=== PATIENT | female | born 1950 | race African-American/Black ===

== ENCOUNTER 2017-01-15 11:04 | Emergency (ER) | payer MEDICARE ==
[~2017-01-15] VITALS: Ht 162.6 cm; Wt 71.0 kg
[~2017-01-15 11:04] MED LIST: HYDR12.56 PO; PRIN10TA PO
[2017-01-15 11:08] VITALS: BP 167/90; PULSE 70; RESP 16; TEMP 98.4; O2SAT 99
[2017-01-15 11:26] VITALS: BP 152/86; PULSE 76
[2017-01-15] MEDS ORDERED: LISI10TA PO (11:30)
--- NOTE | 2017-01-15 11:30 | PD ---
HPI Chief Complaint: Hypertension Time Seen by Provider: 11:21 Travel History International Travel<30 days: No Contact w/Intl Traveler<30days: No Traveled to known affect area: No History of Present Illness HPI 66-year-old woman with high blood pressure. Out of medications yesterday. Appointment with her primary in 3 weeks. No complaints. History Past Medical History Narrative Medical Hypertension Menopausal: Yes : 5 Para: 5 Social History Alcohol Use: No Tobacco Use: No Allergies-Medications (Allergen,Severity, Reaction): Coded Allergies: No Known Allergies (Verified , 11/07/09) Reported Meds & Prescriptions Reported Meds & Active Scripts Active Reported Hctz (Hydrochlorothiazide) 12.5 Mg Cap 12.5 Mg PO DAILY Prinivil (Lisinopril) 10 Mg Tab 10 Mg PO DAILY Review of Systems Cardiovascular: No: Chest Pain or Discomfort Respiratory: No: Shortness of Breath Gastrointestinal: No: Nausea, Vomiting Physical Exam Narrative GENERAL: Well-appearing 66-year-old woman, no acute distress. SKIN: Warm and dry. CARDIOVASCULAR: Warm and well perfused. RESPIRATORY: Normal rate and effort. MUSCULOSKELETAL: No deformities. NEUROLOGICAL: Awake and alert. No gross deficits. Data Data Last Documented VS Vital Signs Date Time Temp Pulse Resp B/P (MAP) Pulse Ox O2 Delivery O2 Flow Rate FiO2 01/15/17 11:26 76 152/86 (108) 01/15/17 11:08 98.4 16 99 Room Air MDM Medical Decision Making Medical Screen Exam Complete: Yes Emergency Medical Condition: Yes Differential Diagnosis Hypertension Narrative Course 66 year-old woman hypertension out of meds. No complaints. Diagnosis Primary Impression: Hypertension Additional Instructions: Take medications as prescribed. Med/Other Pt SpecificInfo: No Change to Meds Scripts Lisinopril-Hctz (Lisinopril-Hctz) 10-12.5 Mg Tab 1 TAB PO DAILY for Blood Pressure Management, #30 TAB 0 Refills Prov: Alfonzo Ndiaye MD 01/15/17 Disposition: 01 DISCHARGE HOME Condition: Stable Alfonzo Ndiaye MD Jan 15, 2017 11:30
== END 2017-01-15 11:55 | disposition home or self-care (01) ==
LOC: NEPD 11:04
DX: I10 Essential (primary) hypertension (principal)
CPT/HCPCS: 99281

== ENCOUNTER 2017-02-13 14:29 | Emergency (ER) | payer MEDICARE ==
[~2017-02-13] VITALS: Ht 162.6 cm; Wt 73.0 kg
[~2017-02-13 14:29] MED LIST changes: +LISI10TA PO
[2017-02-13 14:38] VITALS: BP 182/86; PULSE 94; RESP 16; TEMP 98.3; O2SAT 99
[2017-02-13] MEDS ORDERED: LISI10TA PO (15:18)
[2017-02-13] MEDS ORDERED: BENZ100 PO (15:18)
--- NOTE | 2017-02-13 15:20 | PD ---
HPI Chief Complaint: Cold / Flu Symptoms Time Seen by Provider: 15:01 Travel History International Travel<30 days: No Contact w/Intl Traveler<30days: No Traveled to known affect area: No History of Present Illness HPI 66-year-old female here with cough, nasal congestion, sore throat 3 days. 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 She denies fever or chills, chest pain, shortness breath. Symptom severity is mild. No alleviating factors. Patient has not attempted any OTC medications for symptom relief. Also requesting a refill of her lisinopril hydrochlorothiazide for her blood pressure. She reports she ran out this week and has been unable to establish with a new primary doctor [facility] Past Medical History Cardiovascular Problems: Yes (HTN) Diabetes: No Diminished Hearing: No Hypertension: Yes Tetanus Vaccination: > 5 Years Influenza Vaccination: No ?: Not Menopausal: Yes : 5 Para: 5 Tubal Ligation: Yes Past Surgical History Gynecologic Surgery: Yes (TABAL LIGATION 87) Social History Alcohol Use: No Tobacco Use: No Substance Use: No Allergies-Medications (Allergen,Severity, Reaction): Coded Allergies: diphenhydramine (Verified Allergy, Severe, HIVES, 02/13/17) Reported Meds & Prescriptions Reported Meds & Active Scripts Active Lisinopril-Hctz 10-12.5 Mg Tab 1 Tab PO DAILY Review of Systems Except as stated in HPI: all other systems reviewed are Neg Physical Exam Narrative GENERAL: Well-nourished, well-developed patient. SKIN: Focused skin assessment warm/dry. HEAD: Normocephalic. EYES: No scleral icterus. No injection or drainage. NECK: Supple, trachea midline. No JVD or lymphadenopathy. Throat: Pharyngeal erythema without exudate or tonsillar hypertrophy CARDIOVASCULAR: Regular rate and rhythm without murmurs, gallops, or rubs. RESPIRATORY: Breath sounds equal bilaterally. No accessory muscle use. GASTROINTESTINAL: Abdomen soft, non-tender, nondistended. MUSCULOSKELETAL: No cyanosis, or edema. BACK: Nontender without obvious deformity. No CVA tenderness. Data Data Last Documented VS Vital Signs Date Time Temp Pulse Resp B/P (MAP) Pulse Ox O2 Delivery O2 Flow Rate FiO2 02/13/17 14:52 16 02/13/17 14:38 98.3 94 182/86 (118) 99 [facility] Medical Decision Making Medical Screen Exam Complete: Yes Emergency Medical Condition: Yes Differential Diagnosis URI, Bronchitis, viral illness Narrative Course 66-year-old female here with cough, nasal congestion, sore throat 3 days. Patient works as a OCCUPATIONAL HEALTH TECHNICIAN. Her symptoms are mild. She denies fever, chills, chest pain, shortness of breath. This appears to be viral. She will be treated symptomatically. Patient is also requesting a refill of her blood pressure medication as she is unable to follow-up with a new primary doctor at this time. Diagnosis Primary Impression: URI (upper respiratory infection) Qualified Codes: J06.9 - Acute upper respiratory infection, unspecified; B97.89 - Other viral agents as the cause of diseases classified elsewhere Additional Impression: Medication refill Referrals: [facility] Departure Forms: Tests/Procedures, Work Release Enter return to work date: Feb 16, 2017 Additional Instructions: Take the medication as prescribed. Make a follow-up appointment with the [facility] to establish with a new primary doctor. Return to the emergency department if he developed new or worsening symptoms Scripts Benzonatate (Tessalon Perles) 100 Mg Cap 200 MG PO TID Y for COUGH for 5 Days, CAP 0 Refills Prov: Ольга Parham 02/13/17 Lisinopril-Hctz (Lisinopril-Hctz) 10-12.5 Mg Tab 1 TAB PO DAILY for Blood Pressure Management, #30 TAB 0 Refills Prov: Ольга Parham 02/13/17 Disposition: 01 DISCHARGE HOME Condition: Stable Ольга Parham Feb 13, 2017 15:20
== END 2017-02-13 15:34 | disposition home or self-care (01) ==
LOC: PHEFT 14:29
DX: J06.9 Acute upper respiratory infection, unspecified (principal); I10 Essential (primary) hypertension; Z76.0 Encounter for issue of repeat prescription
CPT/HCPCS: 99283

== ENCOUNTER 2017-03-15 17:12 | Emergency (ER) | payer MEDICARE ==
[~2017-03-15 17:12] MED LIST changes: +BENZ100 PO; -HYDR12.56 PO; -PRIN10TA PO
[2017-03-15 17:17] VITALS: BP 185/84; PULSE 73; RESP 20; TEMP 98.5; O2SAT 100
[2017-03-15] MEDS ORDERED: HYDR25TA5 PO (17:42)
[2017-03-15] MEDS ORDERED: AZIT250T3 PO (17:42)
--- NOTE | 2017-03-15 17:42 | PD ---
HPI Chief Complaint: Cold / Flu Symptoms Time Seen by Provider: 17:32 Travel History International Travel<30 days: No Contact w/Intl Traveler<30days: No Traveled to known affect area: No History of Present Illness HPI Patient 66-year-old female second presentation for cough and past month. Patient states cough has not gotten any better. Denies any sputum production. States feels a tickle in her throat. She does have a history of high blood pressure has not followed up in sometime a primary care physician, her last visit to the emergency department her lisinopril was refilled, patient states she just started this medication about 6 months ago. She denies any chest pain shortness of breath abdominal pain nausea vomiting fevers rash. States gradually gotten worse, associated signs symptoms as above, context as above, symptoms are mild. PFSH Past Medical History Cardiovascular Problems: Yes (HTN) Diabetes: No Diminished Hearing: No Hypertension: Yes Influenza Vaccination: No Menopausal: Yes : 5 Para: 5 Tubal Ligation: Yes Past Surgical History Gynecologic Surgery: Yes (TABAL LIGATION 88) Social History Alcohol Use: No Tobacco Use: No Substance Use: No Allergies-Medications (Allergen,Severity, Reaction): Coded Allergies: diphenhydramine (Verified Allergy, Severe, HIVES, 02/13/17) Reported Meds & Prescriptions Reported Meds & Active Scripts Active Azithromycin 250 Mg Tab 250 Mg PO DIRECTED Take 2 tabs (500 mg) on day 1 then 1 tab daily x 4 days. Hydrochlorothiazide 25 Mg Tab 25 Mg PO DAILY Lisinopril-Hctz 10-12.5 Mg Tab 1 Tab PO DAILY Review of Systems Except as stated in HPI: all other systems reviewed are Neg Physical Exam Narrative GENERAL: Well-developed well-nourished no obvious distress SKIN: Focused skin assessment warm/dry. HEAD: Atraumatic. Normocephalic. EYES: Pupils equal and round. No scleral icterus. No injection or drainage. ENT: No nasal bleeding or discharge. Mucous membranes pink and moist. TMs clear bilaterally oropharynx clear NECK: Trachea midline. No JVD. CARDIOVASCULAR: Regular rate and rhythm. No murmur appreciated. RESPIRATORY: No accessory muscle use. Clear to auscultation. Breath sounds equal bilaterally. GASTROINTESTINAL: Abdomen soft, non-tender, nondistended. Hepatic and splenic margins not palpable. MUSCULOSKELETAL: No obvious deformities. No clubbing. No cyanosis. No edema. NEUROLOGICAL: Awake and alert. No obvious cranial nerve deficits. Motor grossly within normal limits. Normal speech. PSYCHIATRIC: Appropriate mood and affect; insight and judgment normal. Data Data Last Documented VS Orders Orders Chest, Pa & Lat (03/15/17 ) Ed Discharge Order (03/15/17 18:17) MDM Medical Decision Making Medical Screen Exam Complete: Yes Emergency Medical Condition: Yes Differential Diagnosis URI, bronchitis, cough secondary to MERVIN inhibitor Narrative Course Patient roomed in emergency department, including differential is cough secondary to MERVIN inhibitor, discussed changing medications follow-up with a primary care physician return to ED criteria. We'll cover for bronchitis at this point she's had a cough for over a month. Diagnosis Primary Impression: Cough due to MERVIN inhibitor Med/Other Pt SpecificInfo: Prescription(s) given Scripts Azithromycin (Azithromycin) 250 Mg Tab 250 MG PO DIRECTED for Infection, #6 TAB 0 Refills Take 2 tabs (500 mg) on day 1 then 1 tab daily x 4 days. Prov: Sarthak Yu MD 03/15/17 Hydrochlorothiazide (Hydrochlorothiazide) 25 Mg Tab 25 MG PO DAILY, #30 TAB 0 Refills Prov: Sarthak Yu MD 03/15/17 Disposition: 01 DISCHARGE HOME Condition: Stable Sarthak Yu MD Mar 15, 2017 17:42
--- NOTE | 2017-03-15 18:19 | RADRPT ---
EXAM DATE/TIME: 03/15/2017 18:02 [facility] COMPARISON: No previous studies available for comparison. INDICATIONS : Cough for 1 month. MEDICAL HISTORY : None. SURGICAL HISTORY : None. ENCOUNTER: Initial ACUITY: 1 month PAIN SCORE: 0/10 LOCATION: Bilateral chest FINDINGS: PA and lateral views of the chest demonstrate the lungs to be symmetrically aerated without evidence of mass, infiltrate or effusion. The cardiomediastinal contours are unremarkable. Descending thoraci c area is prominent in size. Osseous structures are intact. CONCLUSION: 1. Prominent ascending thoracic aorta which may be accentuated by tortuosity. Consider outpatient CT examination to evaluate for ascending aortic aneurysm. 2. No acute cardiomegaly disease. Lorne Delgado MD on March 15, 2017 at 18:15 Board Certified Radiologist. This report was verified electronically.
== END 2017-03-15 18:30 | disposition home or self-care (01) ==
LOC: PHEFT 17:12
DX: R05 Cough (principal); T46.4X5A Adverse effect of angiotensin-converting-enzyme inhibitors, initial encounter; I10 Essential (primary) hypertension
CPT/HCPCS: 71020; 99284

== ENCOUNTER 2017-04-14 16:28 | Emergency (ER) | payer MEDICARE ==
[~2017-04-14 16:28] MED LIST changes: +AZIT250T3 PO; -BENZ100 PO; +HYDR25TA5 PO
[2017-04-14 16:31] VITALS: BP 183/86; PULSE 88; RESP 20; TEMP 98.3; O2SAT 99
[2017-04-14] MEDS ORDERED: LISI10TA PO (18:03)
[2017-04-14] MEDS ORDERED: OSEL75 PO (18:03)
[2017-04-14] MEDS ORDERED: HYDR25TA5 PO (18:03)
--- NOTE | 2017-04-14 18:03 | PD ---
HPI Chief Complaint: Cold / Flu Symptoms Time Seen by Provider: 17:53 Travel History International Travel<30 days: No Contact w/Intl Traveler<30days: No Traveled to known affect area: No History of Present Illness HPI 67-year-old female with history of hypertension presents to the ED for evaluation of 36 hours history of headache, sinus congestion, clear rhinorrhea, nonproductive cough. She endorses chills but denies fevers. She denies ear pain, sore throat, nausea or vomiting. She denies history of seasonal allergies. She is a nonsmoker. She did not receive this years flu vaccine. She states that her grandson was recently diagnosed with influenza A. She requests a refill of her antihypertensive medications. [facility] Past Medical History Cardiovascular Problems: Yes (HTN) Diabetes: No Diminished Hearing: No Hypertension: Yes Influenza Vaccination: No Menopausal: Yes : 5 Para: 5 Tubal Ligation: Yes Past Surgical History Gynecologic Surgery: Yes (TABAL LIGATION 88) Social History Alcohol Use: No Tobacco Use: No Substance Use: No Allergies-Medications (Allergen,Severity, Reaction): Coded Allergies: diphenhydramine (Verified Allergy, Severe, HIVES, 04/14/17) Reported Meds & Prescriptions Reported Meds & Active Scripts Active Tamiflu (Oseltamivir Phosphate) 75 Mg Cap 75 Mg PO BID 5 Days Hydrochlorothiazide 25 Mg Tab 25 Mg PO DAILY Lisinopril-Hctz 10-12.5 Mg Tab 1 Tab PO DAILY Review of Systems Except as stated in HPI: all other systems reviewed are Neg Physical Exam Narrative GENERAL: Well-nourished, well-developed female in no acute distress. SKIN: Warm and dry. HEAD: Normocephalic. Atraumatic. EYES: No scleral icterus. No injection or drainage. PERRLA. EOMI. ENT: Pearly stacy tympanic membranes bilaterally. Nasal mucosa is moist. Oropharynx without erythema, edema or exudate. NECK: Supple, trachea midline. No JVD or lymphadenopathy. CARDIOVASCULAR: Regular rate and rhythm without murmurs, gallops, or rubs. RESPIRATORY: Breath sounds clear and equal bilaterally. No accessory muscle use. GASTROINTESTINAL: Abdomen soft, non-tender, nondistended. + Bowel sounds MUSCULOSKELETAL: No cyanosis, or edema. BACK: Nontender without obvious deformity. No CVA tenderness. Data Data Last Documented VS Vital Signs Date Time Temp Pulse Resp B/P (MAP) Pulse Ox O2 Delivery O2 Flow Rate FiO2 04/14/17 16:31 98.3 88 20 183/86 (118) 99 Orders Orders Influenzae A/B Antigen (04/14/17 16:47) Ed Discharge Order (04/14/17 18:04) MDM Medical Decision Making Medical Screen Exam Complete: Yes Emergency Medical Condition: Yes Differential Diagnosis Viral syndrome versus influenza versus allergic rhinitis versus medication refill versus other Narrative Course 67-year-old female with history of hypertension presents to the ED for evaluation of 36 hours history of headache, sinus congestion, clear rhinorrhea, nonproductive cough. S She is a nonsmoker. She did not receive this years flu vaccine. She states that her grandson was recently diagnosed with influenza A. She requests a refill of her antihypertensive medications. Patient afebrile on presentation. Physical exam reveals an ill-appearing Tania female but is otherwise unremarkable. I'll go ahead and give her a one-time medication refill. Given her exposure will prescribe Tamiflu. Patient is instructed to continue to treat symptomatically, take all medication as prescribed, follow with her primary care provider. She indicated understanding of instructions and is agreeable to the care plan. She stable and discharged home. Diagnosis Primary Impression: Viral syndrome Additional Impression: Medication refill Referrals: Primary Care Physician Patient Instructions: General Instructions, Influenza (ED) Additional Instructions: Rest, hydrate. Push fluids such as sports drinks, Pedialyte, popsicles, clear broth. Take Tamiflu as prescribed. Continue with symptomatic treatment. Alternating Motrin and Tylenol every 4-6 hours as needed for continued fever. Increase handwashing frequently to avoid the spread of the virus to other family members and the community. Disinfect commonly touched surfaces such as light switches, microwaves, remote controls. Replace toothbrush at the end of this illness. Follow-up with the primary care provider this week. Return to the ED for any urgent or emergent medical condition. Med/Other Pt SpecificInfo: Prescription(s) given Scripts Oseltamivir (Tamiflu) 75 Mg Cap 75 MG PO BID for Mgmt Viral Infection for 5 Days, #10 CAP 0 Refills Prov: Sarthak Yu MD 04/14/17 Hydrochlorothiazide (Hydrochlorothiazide) 25 Mg Tab 25 MG PO DAILY, #30 TAB 0 Refills Prov: Sarthak Yu MD 04/14/17 Lisinopril-Hctz (Lisinopril-Hctz) 10-12.5 Mg Tab 1 TAB PO DAILY for Blood Pressure Management, #30 TAB 0 Refills Prov: Sarthak Yu MD 04/14/17 Disposition: 01 DISCHARGE HOME Condition: Stable Sailaja De León Apr 14, 2017 18:03
== END 2017-04-14 18:13 | disposition home or self-care (01) ==
LOC: PHED 16:28 → PHEFT 18:13
DX: B34.9 Viral infection, unspecified (principal); I10 Essential (primary) hypertension; Z76.0 Encounter for issue of repeat prescription; Z20.828 Contact with and (suspected) exposure to other viral communicable diseases; Z88.8 Allergy status to other drugs, medicaments and biological substances
CPT/HCPCS: 87804; 99284

== ENCOUNTER 2017-06-25 16:49 | Emergency (ER) | payer MEDICARE ==
[~2017-06-25] VITALS: Ht 162.6 cm; Wt 72.9 kg
[~2017-06-25 16:49] MED LIST changes: -AZIT250T3 PO; +OSEL75 PO
[2017-06-25 17:00] VITALS: BP 211/108; PULSE 97; RESP 18; TEMP 97.6; O2SAT 99
[2017-06-25] MEDS ORDERED: cloNIDine HCL 0.1 MG TAB PO ONE (17:45)
[2017-06-25 17:50] VITALS: BP 165/93
--- NOTE | 2017-06-25 18:02 | PD ---
HPI Chief Complaint: Cold / Flu Symptoms Time Seen by Provider: 17:27 Travel History International Travel<30 days: No Contact w/Intl Traveler<30days: No Traveled to known affect area: No History of Present Illness HPI 67-year-old female that presents to the ED for evaluation of cold-like symptoms. Patient states that she has had cold-like symptoms for about 3 days now. Congestion and cough and runny nose. Feeling of weakness. Denies any sick contacts. She states that she is also ran out of her blood pressure medication yesterday and has not taken any today. She was found to be somewhat hypertensive initially. She denies any chest pain or shortness of breath. Per patient her cough is productive. Allergic to Benadryl. Denies any urinary or bowel movement issues. No abdominal pain. No recent travel. PFSH Past Medical History Cardiovascular Problems: Yes (HTN) Diabetes: No Diminished Hearing: No Hypertension: Yes Tetanus Vaccination: > 5 Years Influenza Vaccination: No Menopausal: Yes : 5 Para: 5 Tubal Ligation: Yes Past Surgical History Gynecologic Surgery: Yes (TABAL LIGATION 88) Social History Alcohol Use: No Tobacco Use: No Substance Use: No Allergies-Medications (Allergen,Severity, Reaction): Coded Allergies: diphenhydramine (Verified Allergy, Severe, HIVES, 06/25/17) Reported Meds & Prescriptions Reported Meds & Active Scripts Active Tessalon Perles (Benzonatate) 100 Mg Cap 200 Mg PO TID PRN Azithromycin 250 Mg Tab 250 Mg PO DIRECTED Take 2 tabs (500 mg) on day 1 then 1 tab daily x 4 days. Lisinopril-Hctz 10-12.5 Mg Tab 1 Tab PO DAILY Tamiflu (Oseltamivir Phosphate) 75 Mg Cap 75 Mg PO BID 5 Days Hydrochlorothiazide 25 Mg Tab 25 Mg PO DAILY Review of Systems Except as stated in HPI: all other systems reviewed are Neg Physical Exam Narrative GENERAL: Well-nourished, well-developed patient in no apparent distress. SKIN: Warm and dry. HEAD: Atraumatic. Normocephalic. EYES: Pupils equal and round reactive to light and accommodation. No scleral icterus. No injection or drainage. ENT: No nasal bleeding or discharge. Mucous membranes pink and moist. TMs are clear with no sign of infection or perforation. No mastoid tenderness. Ear canals are intact bilaterally. No lymphadenopathy. Nostril mucosa is red and moist with clear mucus noted. No sinus tenderness to palpation noted. Tonsils are not enlarged or swollen. No ulvua Deviation. Tongue is midline. NECK: Trachea midline. No JVD. No meningeal signs noted CARDIOVASCULAR: Regular rate and rhythm. No murmurs, S3, S4. RESPIRATORY: No accessory muscle use. Clear to auscultation. Breath sounds equal bilaterally. GASTROINTESTINAL: Abdomen soft, non-tender, nondistended. Hepatic and splenic margins not palpable. MUSCULOSKELETAL: Extremities without clubbing, cyanosis, or edema. No obvious deformities. Full range of motion of the upper and lower extremities bilaterally. 2+ pulses bilaterally. NEUROLOGICAL: Awake and alert. No obvious cranial nerve deficits. Motor grossly within normal limits. Five out of 5 muscle strength in the arms and legs. Normal speech. PSYCHIATRIC: Appropriate mood and affect; insight and judgment normal. Data Data Last Documented VS Vital Signs Date Time Temp Pulse Resp B/P (MAP) Pulse Ox O2 Delivery O2 Flow Rate FiO2 06/25/17 17:50 165/93 (117) 06/25/17 17:00 97.6 97 18 99 Orders Orders Influenzae A/B Antigen (06/25/17 17:33) Chest, Single Ap (06/25/17 17:33) Clonidine (Catapres) (06/25/17 17:45) MDM Medical Decision Making Medical Screen Exam Complete: Yes Emergency Medical Condition: Yes Medical Record Reviewed: Yes Interpretation(s) CXR negative for acute disease flu negative Differential Diagnosis URI versus influenza versus pneumonia versus bronchitis versus pharyngitis Narrative Course 67-year-old female that presents to the ED for evaluation of cold-like symptoms. Patient was properly examined and was found to have signs and symptoms consistent with upper respiratory infection. Influence of test and chest x-ray were ordered. This showed no sign of acute disease. Patient was reassured. This time this appears to be upper respiratory infection with likely bronchitis. Will treat with azithromycin. Patient was given a refill of her blood pressure medication. Given a prescription for Tessalon Perles for cough. Told to follow with PCP. Take OTC meds as needed. See ED worsening symptoms. Diagnosis Primary Impression: URI (upper respiratory infection) Qualified Codes: J06.9 - Acute upper respiratory infection, unspecified Patient Instructions: General Instructions Additional Instructions: Motrin and Tylenol for pain and fever. You can use [id number] Mucinex as needed for runny nose and congestion. Cough drops for cough as needed. Drink plenty of fluids. Follow-up with PCP. See ED for worsening symptoms. Med/Other Pt SpecificInfo: Prescription(s) given Scripts Benzonatate (Tessalon Perles) 100 Mg Cap 200 MG PO TID Y for COUGH, #20 CAP 0 Refills Prov: Carmine Amaral MD 06/25/17 Azithromycin (Azithromycin) 250 Mg Tab 250 MG PO DIRECTED for Infection, #6 TAB 0 Refills Take 2 tabs (500 mg) on day 1 then 1 tab daily x 4 days. Prov: Carmine Amaral MD 06/25/17 Lisinopril-Hctz (Lisinopril-Hctz) 10-12.5 Mg Tab 1 TAB PO DAILY for Blood Pressure Management, #30 TAB 0 Refills Prov: Carmine Amaral MD 06/25/17 Disposition: 01 DISCHARGE HOME Condition: Stable Farhan Gallego Jun 25, 2017 18:02
[2017-06-25] MEDS ORDERED: BENZ100 PO (18:31)
[2017-06-25] MEDS ORDERED: AZIT250T3 PO (18:31)
[2017-06-25] MEDS ORDERED: LISI10TA PO (18:31)
--- NOTE | 2017-06-25 18:41 | RADRPT ---
EXAM DATE/TIME: 06/25/2017 18:04 [facility] COMPARISON: No previous studies available for comparison. INDICATIONS : Cough for 3 days MEDICAL HISTORY : None. SURGICAL HISTORY : None. ENCOUNTER: Initial ACUITY: 1 day PAIN SCORE: 0/10 LOCATION: Bilateral chest FINDINGS: A single view of the chest demonstrates the lungs to be symmetrically aerated without evidence of mas s, infiltrate or effusion. The cardiomediastinal contours are unremarkable. Osseous structures are intact. CONCLUSION: No acute disease. Edwar Dwyer MD on June 25, 2017 at 18:39 Board Certified Radiologist. This report was verified electronically.
== END 2017-06-25 19:11 | disposition home or self-care (01) ==
LOC: PHED 16:49 → PHEFT 19:11
DX: J06.9 Acute upper respiratory infection, unspecified (principal); I10 Essential (primary) hypertension; Z79.899 Other long term (current) drug therapy; Z88.8 Allergy status to other drugs, medicaments and biological substances
CPT/HCPCS: 71045; 87804; 99284